=== PATIENT | male | born 1985 | race Caucasian/White ===

== ENCOUNTER 2016-12-02 10:11 | Day surgery (SDC) | payer MEDICAID ==
[~2016-12-02] VITALS: Ht 188 cm; Wt 104.3 kg
[~2016-12-02 10:11] MED LIST: ADVIL200 MG PO; BC POWDER; XANAX0.5 MG PO; ZESTRIL20 MG PO
[2016-12-02 12:55] LABS: HEMOGLOBIN 15.8 g/dL (13.5-17.5); MCHC 33.6 g/dL (31.0-37.0); MCV 95.1 fL (80.0-100.0); MEAN PLATELET VOLUME 12.1 fL (7.4-10.4); RBC 4.94 10x6/uL (4.20-6.10); RDW 13.4 % (11.5-14.5); WBC 11.1 10x3/uL (4.8-10.8)
[2016-12-02] MEDS ORDERED: VYVANSE70 MG PO (13:00)
[2016-12-02 13:04] VITALS: BP 122/74; Ht 188 cm; Wt 104.3 kg
[2016-12-02] MEDS ORDERED: DILAUDID4 MG PO (17:13)
--- NOTE | 2016-12-02 18:45 | NUR ---
DISCHARGE INSTRUCTIONS REVIEWED WITH PATIENT AND SPOUSE. PATIENT DISCHARGED VIA WHEELCHAIR TO PRIVATE VEHICLE WITH SPOUSE
--- NOTE | 2016-12-06 14:00 | OP ---
PATIENT NAME: ISIS JONES MEDICAL RECORD: [id number] :87 LOCATION:D.OPS ADMISSION DATE: SURGEON: LUANA MINOR MD DATE OF OPERATION: 12/02/2016 Orthopedic Surgery Operative Note PREOPERATIVE DIAGNOSIS: SLAP lesion of the right shoulder -- reverse SLAP lesion with paralabral cyst. POSTOPERATIVE DIAGNOSIS: SLAP lesion of the right shoulder -- reverse SLAP lesion with paralabral cyst. PROCEDURE: 1. Arthroscopic SLAP repair of the right shoulder. 2. Arthroscopic subacromial decompression of the right shoulder. SURGEON: Luana Minor MD. ANESTHESIA: General. INTRAOPERATIVE COMPLICATIONS: None. SUMMARY OF PATHOLOGIC FINDINGS: Mr. Jones indeed did have a true SLAP lesion with a paralabral cyst. This was photographed intraoperatively. The cyst was decompressed arthroscopically. OPERATIVE SUMMARY IN DETAIL: After obtaining the appropriate preoperative orthopedic surgery consent as well as anesthetic consultation, evaluation and clearance, the patient was brought to the operating room and placed on the operating table in supine position. After general laryngeal mask was administered, the patient was placed in left lateral decubitus position. All pressure points were well padded to include down leg peroneal pad as well as axillary roll. The patient was held firmly to the operating table using the vacuum pack suction system. The patient's right upper extremity and shoulder were then prepped and draped in routine sterile fashion. The arm was held in the Arthrex traction boom at 30 degrees of forward flexion, 30 degrees of abduction with 10 pounds of traction laterally. Arthroscopy was established in the glenohumeral joint from a posterior portal. Anterior portals was established in the anterior safe interval. Diagnostic arthroscopy showed the patient had the SLAP lesion as described on the MRI. The superior cortical surface of the glenoid was debrided using arthroscopic resector and the bed for reapproximation of the labrum was created. At this point a combination of five 2.9 short PushLocks were utilized 2 posteriorly and 3 anteriorly to reapproximate the labrum. Excellent reapproximation and anatomic reattachment was achieved. Having completed this with the Arthrex percutaneous system, attention was turned to the subacromial space. While the subacromial space, a polyp tissue ablation system was utilized to denude the undersurface of the acromion of all soft tissue elements and then a 5-0 bur was used to perform acromioplasty at the level of acromioclavicular joint. Having completed this, arthroscopy portals were closed in routine interrupted fashion using 4-0 Prolene. Sterile dressings were applied. The patient was awakened, taken to recovery in stable condition. All final needle and sponge counts were correct. TRANSINT:[id number] Voice Confirmation ID: [id number] DOCUMENT ID: [id number] OPERATIVE REPORT [id number] ISIS JONES MD, LUANA MCCRACKEN at 1400 CC: [id number] DICTATION DATE: 12/05/16 09 FRUIT GRADER OPERATOR: 12/05/16 1215 [facility] 12/02/16 [id number] [place] [address]
== END 2016-12-02 18:45 | disposition home or self-care (01) ==
LOC: D.OPS 10:11 → D.PAN 13:15 → D.OPS 13:40
PROVIDERS: Anesthesiology
DX: S43.431A Superior glenoid labrum lesion of right shoulder, initial encounter (principal)

== ENCOUNTER → 2017-01-30 12:08 | Outpatient (CLI) | payer MEDICAID ==
[2016-12-02 13:04] VITALS: BMI 29.6
[~2017-01-30 12:08] MED LIST changes: +DILAUDID4 MG PO; +VYVANSE70 MG PO
== END | disposition home or self-care (01) ==
LOC: D.RAD 12:08 → D.MRI 01-31 08:30
DX: S43.491A Other sprain of right shoulder joint, initial encounter (principal)

== ENCOUNTER → 2017-04-28 08:50 | Outpatient (CLI) | payer MEDICAID ==
[2016-12-02 13:04] VITALS: BMI 29.6
== END | disposition home or self-care (01) ==
LOC: D.MRI 04-21 11:30
DX: S43.491A Other sprain of right shoulder joint, initial encounter (principal); X58.XXXA Exposure to other specified factors, initial encounter; Y93.89 Activity, other specified; Y92.89 Other specified places as the place of occurrence of the external cause

== ENCOUNTER 2017-07-14 07:17 | Day surgery (SDC) | payer MEDICAID ==
[~2017-07-14] VITALS: Ht 188 cm; Wt 99.8 kg
[2017-07-14 08:18] LABS: HEMATOCRIT 45.1 % (42.0-54.0); HEMOGLOBIN 15.4 g/dL (13.5-17.5); MCH 32.1 pg (26.0-34.0); MCHC 34.1 g/dL (31.0-37.0); MEAN PLATELET VOLUME 11.5 fL (7.4-10.4); RBC 4.8 10x6/uL (4.20-6.10); RDW 13.4 % (11.5-14.5); WBC 9.8 10x3/uL (4.8-10.8)
[2017-07-14 08:41] LABS: CALC OSMOLALITY 277 mosm/kg (275-300); CALCIUM 9.1 mg/dL (8.5-10.1); CARBON DIOXIDE 28.1 mmol/L (21.0-32.0); CHLORIDE - SERUM 106 mmol/L (98-107); GLUCOSE 98 mg/dL (74-106); SODIUM 140 mmol/L (136-145); UREA NITROGEN 11 mg/dL (7-18); eGFR NON AFRICAN AMERICAN > 90 mL/min (90-120)
[2017-07-14 09:10] VITALS: BP 131/85; Ht 188 cm; Wt 99.8 kg
[2017-07-14] MEDS ORDERED: HYDROCODONE-APA1 TAB PO (10:38)
--- NOTE | 2017-07-14 11:04 | NUR ---
PATIENT STATES HE DOES NOT WANT IV DILAUDID. HE STATES HE WILL WAIT ON HIS PRESCRIPTION FROM DR MINOR FOR HIS ORAL MEDS.
== END 2017-07-14 12:30 | disposition home or self-care (01) ==
LOC: D.OPS 07:17 → D.PAN 11:30 → D.OPS 12:30
PROVIDERS: Anesthesiology
DX: M70.21 Olecranon bursitis, right elbow (principal); S43.491A Other sprain of right shoulder joint, initial encounter; M25.511 Pain in right shoulder; F17.200 Nicotine dependence, unspecified, uncomplicated; Z01.812 Encounter for preprocedural laboratory examination

== ENCOUNTER 2017-07-26 18:58 | Emergency (ER) | payer MEDICAID ==
[~2017-07-26 18:58] MED LIST changes: +HYDROCODONE-APA1 TAB PO
[2017-07-26 20:02] LABS: BASOPHILS 0.3 % (0-2); EOSINOPHILS 1.8 % (0-7); HEMATOCRIT 42.3 % (42.0-54.0); HEMOGLOBIN 14.3 g/dL (13.5-17.5); IMMATURE GRANULOCYTES 0.3 % (0-5); LYMPHOCYTES 28.1 % (15-50); MCH 31.9 pg (26.0-34.0); MCHC 33.8 g/dL (31.0-37.0); MCV 94.4 fL (80.0-100.0); MEAN PLATELET VOLUME 11.4 fL (7.4-10.4); MONOCYTES 7.1 % (2-11); NEUTROPHILS 62.4 % (40-80); PLATELET COUNT 201 10x3/uL (130-400); RBC 4.48 10x6/uL (4.20-6.10); RDW 13.1 % (11.5-14.5)
[2017-07-26 20:18] LABS: CALC OSMOLALITY 272 mosm/kg (275-300); CALCIUM 8.6 mg/dL (8.5-10.1); CARBON DIOXIDE 25.1 mmol/L (21.0-32.0); CHLORIDE - SERUM 102 mmol/L (98-107); CREATININE - SERUM 0.9 mg/dL (0.6-1.3); GLUCOSE 97 mg/dL (74-106); POTASSIUM - SERUM 3.7 mmol/L (3.5-5.1); SODIUM 137 mmol/L (136-145); UREA NITROGEN 9 mg/dL (7-18); eGFR NON AFRICAN AMERICAN > 90 mL/min (90-120)
== END 2017-07-26 22:07 | disposition home or self-care (01) ==
LOC: D.ER 18:58
PROVIDERS: Nurse Practitioner Acute Care
DX: L03.113 Cellulitis of right upper limb (principal); F17.200 Nicotine dependence, unspecified, uncomplicated

== ENCOUNTER 2018-01-03 17:54 | Inpatient (IN) | payer MEDICAID ==
[~2018-01-03] VITALS: Ht 188 cm; Wt 95.5 kg
--- NOTE | ~2018-01-03 | OP ---
PATIENT NAME: ISIS BARNETT MEDICAL RECORD: [id number] :87 LOCATION:D.MS [facility] ADMISSION DATE:01/05/18 SURGEON: LUANA MINOR MD DATE OF OPERATION: 01/06/2018 PREOPERATIVE DIAGNOSES: 1. Medial malleolar fracture with intra-articular osteochondral fragment, right lower extremity. 2. Open wound down to bone, lateral malleolus, right lower extremity. PROCEDURES: 1. Open reduction internal fixation of right lateral malleolus including intra-articular osteochondral fragment. 2. Irrigation and excisional debridement of the open wound of the lateral malleolar to include skin, subcutaneous tissue, portions of fat, fascia, muscle and bone with closure. SURGEON: Luana Minor MD ANESTHESIA: General. INTRAOPERATIVE COMPLICATIONS: None. SUMMARY OF PATHOLOGIC FINDINGS: On the medial malleolar side as predicted by the patient's x-rays, the patient had an osteochondral fragment just lateral to the medial malleolus that involved the articular surface of the plafond, which required internal fixation as did the medial malleolus. Anatomic protestant was restored. The lateral side required curettage down to bone with irrigation; however, with large vpch-wnj-poo-near sutures the wound was closed to my satisfaction. OPERATIVE SUMMARY IN DETAIL: After obtaining the appropriate preoperative orthopedic surgery consent as well as anesthetic consultation, evaluation and clearance, the patient was brought to the operating room and placed on the table in a supine position. After adequate general laryngeal mask airway was administered, tourniquet was placed about the proximal aspect of the right lower extremity. Right lower extremity was then prepped and draped in routine sterile fashion. Leg was elevated and exsanguinated, tourniquet inflated to 350 mmHg. Attention was first turned to the medial malleolus after fluoroscopy was used to verify all fracture and fragments. Medial malleolar based incision was taken down to the fracture itself, which was debrided of all periosteum as well as intraarticular and interfragmental hematoma. The small osteochondral fragment was identified. It was then placed back in its anatomic position and a 0.045 threaded K-Wire was then placed across the fragment and cut off at the level of the bone. This held the fragment in place nicely and then two 40 mm cannulated screws were placed across the medial malleolar fragment as it was held in anatomic fixation using bone reduction forceps. Having completed this, the wound was copiously irrigated and closed with 0 Vicryl followed by skin cameron. Attention was then turned to the lateral side. The lateral side was then irrigated, followed by a curettage, rongeur and scalpel debridement of all nonviable and foreign material. Then a size 0 Prolene was used with a csff-fnl-nld-near suture to reapproximate the lateral malleolar defect. Having completed this, sterile dressings were applied. Posterior L&U splint was applied. Tourniquet was deflated. The patient was awakened and taken to recovery room in stable condition. All final needle and sponge counts were OPERATIVE REPORT [id number] ISIS BARNETT correct. TRANSINT:[id number] Voice Confirmation ID: [id number] DOCUMENT ID: [id number] MILY PRUETT, LUANA MCCRACKEN at 0825 CC: [id number] DICTATION DATE: 01/06/18 152 PROMOTIONS ASSISTANT SALES MARKETING: 01/06/18 1543 ADM IN [facility] [address] [id number]
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
[2018-01-03 21:06] LABS: BASOPHILS 0.2 % (0-2); EOSINOPHILS 1.4 % (0-7); HEMATOCRIT 44.6 % (42.0-54.0); HEMOGLOBIN 15.1 g/dL (13.5-17.5); IMMATURE GRANULOCYTES 0.4 % (0-5); LYMPHOCYTES 18.1 % (15-50); MCH 31.9 pg (26.0-34.0); MCHC 33.9 g/dL (31.0-37.0); MCV 94.3 fL (80.0-100.0); MEAN PLATELET VOLUME 11.6 fL (7.4-10.4); MONOCYTES 5.6 % (2-11); NEUTROPHILS 74.3 % (40-80); PLATELET COUNT 215 10x3/uL (130-400); RBC 4.73 10x6/uL (4.20-6.10); RDW 13.4 % (11.5-14.5); WBC 19.2 10x3/uL (4.8-10.8)
[2018-01-03 21:26] LABS: APTT 33.2 SECONDS (22.8-39.4); INR 1.09 (0.85-1.17); PROTIME 13.7 SECONDS (11.6-15.0)
[2018-01-03 21:37] LABS: ALBUMIN 3.9 g/dL (3.4-5.0); ALKALINE PHOSPHATASE 107 U/L (46-116); ALT (SGPT) 82 U/L (10-68); BILIRUBIN - TOTAL 0.38 mg/dL (0.2-1.3); CALC OSMOLALITY 276 mosm/kg (275-300); CALCIUM 8.8 mg/dL (8.5-10.1); CARBON DIOXIDE 23.9 mmol/L (21.0-32.0); CHLORIDE - SERUM 102 mmol/L (98-107); CREATININE - SERUM 1.2 mg/dL (0.6-1.3); GLUCOSE 102 mg/dL (74-106); POTASSIUM - SERUM 4.1 mmol/L (3.5-5.1); PROTEIN - SERUM 7.6 g/dL (6.4-8.2); SODIUM 138 mmol/L (136-145); UREA NITROGEN 14 mg/dL (7-18); eGFR NON AFRICAN AMERICAN 75 mL/min (90-120)
[2018-01-03] MEDS ORDERED: BC POWDER (23:30)
[2018-01-04] VITALS (7 sets, daily range): BP systolic 141–188; BP diastolic 65–79; Ht 188 cm; Wt 95.5 kg
[2018-01-04 22:22] LABS: APPEARANCE CLEAR (CLEAR); COLOR YELLOW (YELLOW); GLUCOSE NEGATIVE (NEGATIVE); KETONE NEGATIVE (NEGATIVE); NITRITE NEGATIVE (NEGATIVE); PROTEIN NEGATIVE (NEGATIVE); SPECIFIC GRAVITY 1.015 (1.005-1.020); UROBILINOGEN NORMAL (NORMAL)
[2018-01-04 22:23] LABS: BILIRUBIN NEGATIVE (NEGATIVE)
[2018-01-04 22:28] LABS: UDS - AMPHET NEGATIVE QUAL (NEGATIVE); UDS - BARB NEGATIVE QUAL (NEGATIVE); UDS - BENZO NEGATIVE QUAL (NEGATIVE); UDS - COCAINE NEGATIVE QUAL (NEGATIVE); UDS - OPIATE POSITIVE QUAL (NEGATIVE); UDS - PCP NEGATIVE QUAL (NEGATIVE); UDS - THC NEGATIVE QUAL (NEGATIVE)
[2018-01-05 00:57] VITALS: BP 139/66
[2018-01-05 05:03] VITALS: BP 141/71
[2018-01-05 06:13] LABS: BASOPHILS 0.2 % (0-2); EOSINOPHILS 1.8 % (0-7); HEMATOCRIT 41.5 % (42.0-54.0); HEMOGLOBIN 13.9 g/dL (13.5-17.5); IMMATURE GRANULOCYTES 0.4 % (0-5); LYMPHOCYTES 21.3 % (15-50); MCH 31.9 pg (26.0-34.0); MCHC 33.5 g/dL (31.0-37.0); MCV 95.2 fL (80.0-100.0); MEAN PLATELET VOLUME 12.1 fL (7.4-10.4); MONOCYTES 10.5 % (2-11); NEUTROPHILS 65.8 % (40-80); PLATELET COUNT 179 10x3/uL (130-400); RBC 4.36 10x6/uL (4.20-6.10); RDW 13.3 % (11.5-14.5)
[2018-01-05 06:29] LABS: CALC OSMOLALITY 274 mosm/kg (275-300); CALCIUM 8.8 mg/dL (8.5-10.1); CARBON DIOXIDE 26.6 mmol/L (21.0-32.0); CHLORIDE - SERUM 102 mmol/L (98-107); GLUCOSE 103 mg/dL (74-106); POTASSIUM - SERUM 3.9 mmol/L (3.5-5.1); SODIUM 138 mmol/L (136-145); eGFR NON AFRICAN AMERICAN > 90 mL/min (90-120)
[2018-01-05 06:31] LABS: UREA NITROGEN 9 mg/dL (7-18)
[2018-01-05 07:02] VITALS: BP 144/69
[2018-01-05 11:09] VITALS: BP 171/84
[2018-01-05 15:00] VITALS: BP 136/76
[2018-01-05 20:00] VITALS: BP 130/79
[2018-01-06 04:00] VITALS: BP 129/74
[2018-01-06 06:20] LABS: BASOPHILS 0.2 % (0-2); EOSINOPHILS 2.3 % (0-7); HEMATOCRIT 41.7 % (42.0-54.0); HEMOGLOBIN 13.8 g/dL (13.5-17.5); IMMATURE GRANULOCYTES 0.3 % (0-5); LYMPHOCYTES 19.8 % (15-50); MCH 31.5 pg (26.0-34.0); MCHC 33.1 g/dL (31.0-37.0); MCV 95.2 fL (80.0-100.0); MEAN PLATELET VOLUME 11.7 fL (7.4-10.4); NEUTROPHILS 67.4 % (40-80); PLATELET COUNT 189 10x3/uL (130-400); RBC 4.38 10x6/uL (4.20-6.10); WBC 11.8 10x3/uL (4.8-10.8)
[2018-01-06 06:51] LABS: CALC OSMOLALITY 272 mosm/kg (275-300); CALCIUM 9.1 mg/dL (8.5-10.1); CARBON DIOXIDE 28.1 mmol/L (21.0-32.0); CHLORIDE - SERUM 102 mmol/L (98-107); GLUCOSE 102 mg/dL (74-106); POTASSIUM - SERUM 4.1 mmol/L (3.5-5.1); SODIUM 137 mmol/L (136-145); UREA NITROGEN 9 mg/dL (7-18); eGFR NON AFRICAN AMERICAN > 90 mL/min (90-120)
[2018-01-06 07:00] VITALS: BP 132/62
[2018-01-06 11:04] VITALS: BP 130/62
[2018-01-06 16:32] VITALS: BP 164/76
[2018-01-06 20:00] VITALS: BP 159/91
[2018-01-07] VITALS: BP 147/71
[2018-01-07 04:00] VITALS: BP 120/50
[2018-01-07 06:37] LABS: BASOPHILS 0.1 % (0-2); EOSINOPHILS 0.8 % (0-7); HEMATOCRIT 40.7 % (42.0-54.0); HEMOGLOBIN 13.3 g/dL (13.5-17.5); IMMATURE GRANULOCYTES 0.4 % (0-5); LYMPHOCYTES 14.8 % (15-50); MCH 31.4 pg (26.0-34.0); MCHC 32.7 g/dL (31.0-37.0); MCV 96.2 fL (80.0-100.0); MEAN PLATELET VOLUME 11.7 fL (7.4-10.4); MONOCYTES 9.5 % (2-11); NEUTROPHILS 74.4 % (40-80); RBC 4.23 10x6/uL (4.20-6.10)
[2018-01-07 06:51] LABS: PLATELET COUNT 231 10x3/uL (130-400); WBC 15.8 10x3/uL (4.8-10.8)
[2018-01-07 07:25] LABS: CALC OSMOLALITY 276 mosm/kg (275-300); CALCIUM 8.9 mg/dL (8.5-10.1); CARBON DIOXIDE 25.3 mmol/L (21.0-32.0); CHLORIDE - SERUM 103 mmol/L (98-107); CREATININE - SERUM 0.9 mg/dL (0.6-1.3); GLUCOSE 114 mg/dL (74-106); POTASSIUM - SERUM 3.8 mmol/L (3.5-5.1); SODIUM 138 mmol/L (136-145); eGFR NON AFRICAN AMERICAN > 90 mL/min (90-120)
[2018-01-07 07:27] LABS: UREA NITROGEN 12 mg/dL (7-18)
[2018-01-07] MEDS ORDERED: SILVADENE20 GM TOPICAL (08:23)
[2018-01-07] MEDS ORDERED: BACTRIM DS TABL1 TAB PO (08:24)
[2018-01-07] MEDS ORDERED: BAYER CHEWABLE81 MG PO (08:24)
[2018-01-07] MEDS ORDERED: PERCOCET 10/3251 TA1 PO (08:24)
[2018-01-07 08:49] VITALS: BP 150/74
== END 2018-01-07 12:15 | disposition home or self-care (01) | DRG 493 ==
LOC: D.ER 17:54 → D.EDHOLD 20:14 → OBSVTIME 20:14 → D.MS 20:14
PROVIDERS: Internal Medicine Nephrology; Orthopaedic Surgery; Orthopaedic Surgery Foot and Ankle Surgery; Physician Assistant Medical
PROC: 0HDMXZZ Extraction of Right Foot Skin, External Approach (ICD-10-PCS; principal; 2018-01-03 21:10)
PROC: 0QSG04Z Reposition Right Tibia with Internal Fixation Device, Open Approach (ICD-10-PCS; 2018-01-06 10:30)
DX: S82.841B Displaced bimalleolar fracture of right lower leg, initial encounter for open fracture type I or II (principal); F17.203 Nicotine dependence unspecified, with withdrawal; V29.9XXA Motorcycle rider (driver) (passenger) injured in unspecified traffic accident, initial encounter; S10.91XA Abrasion of unspecified part of neck, initial encounter; S20.319A Abrasion of unspecified front wall of thorax, initial encounter; S00.91XA Abrasion of unspecified part of head, initial encounter; I10 Essential (primary) hypertension

== ENCOUNTER → 2018-03-02 16:20 | Outpatient (CLI) | payer MEDICAID ==
[2018-01-04 10:21] VITALS: BMI 27.0
[~2018-03-02 16:20] MED LIST changes: +BACTRIM DS TABL1 TAB PO; +BAYER CHEWABLE81 MG PO; +PERCOCET 10/3251 TA1 PO; +SILVADENE20 GM TOPICAL
== END | disposition home or self-care (01) ==
LOC: D.LABREF 16:20
DX: S91.001A Unspecified open wound, right ankle, initial encounter (principal); X58.XXXA Exposure to other specified factors, initial encounter; Y93.9 Activity, unspecified; Y92.9 Unspecified place or not applicable

== ENCOUNTER → 2018-03-23 09:20 | Outpatient (CLI) | payer MEDICAID ==
[2018-01-04 10:21] VITALS: BMI 27.0
[2018-03-23 09:43] LABS: BASOPHILS 0.5 % (0-2); EOSINOPHILS 3.2 % (0-7); HEMATOCRIT 46.1 % (42.0-54.0); HEMOGLOBIN 15.7 g/dL (13.5-17.5); IMMATURE GRANULOCYTES 0.3 % (0-5); LYMPHOCYTES 29.6 % (15-50); MCHC 34.1 g/dL (31.0-37.0); MCV 94.1 fL (80.0-100.0); MEAN PLATELET VOLUME 11.7 fL (7.4-10.4); MONOCYTES 8.1 % (2-11); NEUTROPHILS 58.3 % (40-80); PLATELET COUNT 229 10x3/uL (130-400); RDW 13.2 % (11.5-14.5); WBC 9.4 10x3/uL (4.8-10.8)
[2018-03-23 10:41] LABS: ERYTHROCYTE SEDIMENTATION RATE 1 mm/hr (0-15)
== END | disposition home or self-care (01) ==
LOC: D.LABREF 09:20
PROVIDERS: Orthopaedic Surgery
DX: M25.571 Pain in right ankle and joints of right foot (principal)

== ENCOUNTER 2020-06-17 18:52 | Inpatient (IN) | payer MEDICAID ==
[~2020-06-17] VITALS: Ht 188 cm; Wt 100.0 kg
[2020-06-17 19:01] VITALS: Ht 188 cm; Wt 100.0 kg
[2020-06-17 19:38] LABS: BASOPHILS 0.5 % (0-2); EOSINOPHILS 1.9 % (0-7); HEMATOCRIT 49.9 % (42.0-54.0); IMMATURE GRANULOCYTES 0.9 % (0-5); LYMPHOCYTES 24.9 % (15-50); MCH 32.4 pg (26.0-34.0); MCHC 34.1 g/dL (31.0-37.0); MCV 95.2 fL (80.0-100.0); MEAN PLATELET VOLUME 11.2 fL (7.4-10.4); MONOCYTES 6.3 % (2-11); NEUTROPHILS 65.5 % (40-80); PLATELET COUNT 262 10x3/uL (130-400); RBC 5.24 10x6/uL (4.20-6.10); RDW 14.1 % (11.5-14.5); WBC 17.3 10x3/uL (4.8-10.8)
[2020-06-17 19:50] LABS: CALCIUM 8.9 mg/dL (8.5-10.1); CREATININE - SERUM 1.3 mg/dL (0.6-1.3)
[2020-06-17 19:54] LABS: APTT 30.9 SECONDS (22.8-39.4); INR 0.95 (0.85-1.17); PROTIME 12.6 SECONDS (11.6-15.0)
[2020-06-17 19:56] LABS: ALBUMIN 4.4 g/dL (3.4-5.0); BILIRUBIN - TOTAL 0.47 mg/dL (0.2-1.3); PROTEIN - SERUM 8.3 g/dL (6.4-8.2)
--- NOTE | 2020-06-17 21:57 | NUR ---
PT TO SURGERY. REPORT TO [facility] LIZABETH MAYBERRY AND MARICARMEN LACEY.
[2020-06-17] MEDS ORDERED: BACTRIM DS TAB1 EAC1 PO (22:40)
[2020-06-17] MEDS ORDERED: HYDROCODON-ACE1 EA10 PO (22:40)
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
[2020-06-17 22:56] VITALS: BP 135/97
[2020-06-17 23:21] VITALS: BP 138/88
--- NOTE | 2020-06-19 10:22 | OP ---
PATIENT NAME: ISIS BARNETT MEDICAL RECORD: [id number] :87 LOCATION:[facility] [address].T03- ADMISSION DATE:06/17/20 SURGEON: LUANA MINOR MD DATE OF OPERATION: 06/17/2020 PREOPERATIVE DIAGNOSIS: Open fracture laceration right hand distal phalanx small finger, with nail bed injury. POSTOPERATIVE DIAGNOSIS: Open fracture laceration right hand distal phalanx small finger, with nail bed injury. PROCEDURES: 1. Reduction of open fracture with percutaneous pinning of the distal phalanx. 2. Nail bed reconstruction. 3. Primary closure of open distal finger wound. 4. I&D of open wound. SURGEON: Luana Minor MD ANESTHESIA: MAC with local. INTRAOPERATIVE COMPLICATIONS: None. SUMMARY OF PATHOLOGIC FINDINGS: The patient's fingernail was completely gone, leaving a very lacerated nail bed that required 6-0 chromic closure, the tip was viable and the patient's fracture was reduced and pinned, the tip was reapproximated with 4-0 Prolene. OPERATIVE SUMMARY IN DETAIL: After obtaining the appropriate preoperative orthopedic surgery consent as well as anesthetic consultation, evaluation and clearance, the patient was brought to the operating room and placed on the operating room table in supine position. After local MAC anesthesia had been administered and the patient's finger had been blocked with 0.25% Marcaine plain and allowed to set up, the wound was irrigated and all clots and foreign bodies and other material were removed from the wound. At this point, the fingertip was held in place while it was reapproximated with a 4-0 Prolene. Good reapproximation was achieved and the fingertip did appear to be viable. The nail bed was reapproximated primarily in the sterile matrix portion of the nail bed using 6-0 chromic. Having completed this, an 0.045 K-wire was then placed through the distal phalangeal fracture across the DIP joint for stability. AP and lateral views were taken of this and submitted for radiologist review. A Jergens ball was then placed on the end of the K-wire. Sterile dressings were applied. The patient was then returned to the Emergency Department in stable condition, having MAC anesthesia with a local digital block only. TRANSINT:[id number] Voice Confirmation ID: [id number] DOCUMENT ID: [id number] OPERATIVE REPORT [id number] ISIS BARNETT MD, LUANA MCCRACKEN at 1022 CC: [id number] DICTATION DATE: 06/17/202244 MEDICAL ENGINEER: 06/18/20 0149 DIS IN 06/17/20 [id number] [place] [id number]
== END 2020-06-17 23:21 | disposition home or self-care (01) | DRG 514 ==
LOC: D.ER 18:52 → D.EDHOLD 21:40
PROVIDERS: Family Medicine; ADMIT Orthopaedic Surgery; ATTEND Orthopaedic Surgery
PROC: 0PST34Z Reposition Right Finger Phalanx with Internal Fixation Device, Percutaneous Approach (ICD-10-PCS; principal; 2020-06-17 21:45)
DX: S62.636B Displaced fracture of distal phalanx of right little finger, initial encounter for open fracture (principal); W13.2XXA Fall from, out of or through roof, initial encounter; S61.306A Unspecified open wound of right little finger with damage to nail, initial encounter

== ENCOUNTER → 2020-06-27 13:31 | Outpatient (CLI) | payer MEDICAID ==
[2020-06-17 19:01] VITALS: BMI 28.3
[~2020-06-27 13:31] MED LIST changes: +BACTRIM DS TAB1 EAC1 PO; +HYDROCODON-ACE1 EA10 PO
== END | disposition home or self-care (01) ==
LOC: D.MRI 13:31
PROVIDERS: ATTEND Orthopaedic Surgery
DX: S83.511A Sprain of anterior cruciate ligament of right knee, initial encounter (principal)